=== PATIENT | male | born 1975 | race Caucasian/White ===

== ENCOUNTER 2018-12-13 15:29 | Emergency (ER) | payer OTHER ==
[2018-12-13 15:34] VITALS: BP 135/87; PULSE 93; RESP 18; TEMP 99
--- NOTE | 2018-12-13 16:23 | XR ---
EXAMINATION TYPE: XR knee complete RT DATE OF EXAM: 12/13/2018 COMPARISON: NONE HISTORY: 43-year-old male worsening right knee pain 3 weeks after injury TECHNIQUE: 3 views FINDINGS: There is some lucency and irregularity in the region of the lateral tibial plateau with a very subtle articular surface defect on the AP view. [id number] knee joint effusion. Generalized soft tis austin swelling. Mild degenerative spurring in the patellofemoral compartment. IMPRESSION: Suspect an occult lateral tibial plateau fracture. Small to moderate knee joint effusion.
--- NOTE | 2018-12-13 16:46 | ED ---
General Adult HPI - General Chief complaint: Extremity Injury, Lower Stated complaint: Knee pain Time Seen by Provider: 12/13/18 15:35 Source: patient Mode of arrival: ambulatory Limitations: no limitations - History of Present Illness Initial comments: Patient is a 43-year-old male presenting to the emergency department with a chief complaint of right knee pain. Patient reports he boxing about 3 to half weeks ago when he stomped the floor and felt a sudden onset of pain in the right knee. Patient reports initially he had swelling and ecchymosis along the posterior aspect of the right leg which has since resolved. Patient reports he continues to have limited range of motion with full extension and flexion. Patient reports very minimal pain that only appears to be exacerbated with weightbearing. Patient reports taking [id number] analgesics minimal improvement. - Related Data Previous Rx's Medication Instructions Recorded Erythromycin Ophth Oint [Romycin 1 applic LEFT EYE QID #1 tube 06/28/13 Ophth Oint] Ibuprofen [Motrin] 800 mg PO Q6HR PRN #15 tab 06/28/13 Allergies Allergy/AdvReac Type Severity Reaction Status Date / Time No Known Allergies Allergy Verified 12/13/18 15:30 Review of Systems ROS Statement: Those systems with pertinent positive or pertinent negative responses have been documented in the HPI. ROS Other: All systems not noted in ROS Statement are negative. Past Medical History Past Medical History: No Reported History History of Any Multi-Drug Resistant Organisms: None Reported Past Surgical History: No Surgical Hx Reported Past Psychological History: No Psychological Hx Reported Smoking Status: Current every day smoker Past Alcohol Use History: None Reported, Occasional Past Drug Use History: None Reported General Exam Limitations: no limitations General appearance: alert, in no apparent distress Head exam: Present: atraumatic, normocephalic, normal inspection Eye exam: Present: normal appearance Pupils: Present: normal accommodation ENT exam: Present: normal exam, mucous membranes moist, normal external ear exam Neck exam: Present: normal inspection, full ROM Respiratory exam: Present: normal lung sounds bilaterally Cardiovascular Exam: Present: regular rate, normal rhythm, normal heart sounds Extremities exam: Present: tenderness (Mild lateral knee tenderness.), normal capillary refill, other (+2 dorsalis pedis and posterior tibialis bilaterally.). Absent: normal inspection (Very mild ecchymosis in the right knee), full ROM (Limited range of motion with knee flexion past 90 and full extension.), calf tenderness (Negative Homans bilaterally.) Back exam: Present: normal inspection, full ROM Neurological exam: Present: alert, oriented X3 Psychiatric exam: Present: normal affect, normal mood Skin exam: Present: warm, intact, normal color Course Vital Signs 12/13/18 15:30 Temperature 99.0 F Pulse Rate 93 Respiratory 18 Rate Blood Pressure 135/87 O2 Sat by Pulse 95 Oximetry Medical Decision Making - Medical Decision Making patient is a 43-year-old male presenting to emergency Department with a chief complaint of right knee pain. This happened about 3 and half weeks ago when the patient stopped the floor and physical examination there only appears to minimize swelling and no other signs. Negative anterior drawer. X-rays ind icative of a cold lateral tibial plateau fracture with small amount of joint effusion. Immobilizer will be applied. Patient advised to alternate between Tylenol and ibuprofen for pain control. Patient does not want any narcotic medication. Patient advised to follow with orthopedics for further management. Patient also given crutches. Patient advised to avoid weightbearing on that leg. Strict return parameters were thoroughly discussed with patient was understanding and agreeable. Case discussed physician. Disposition Clinical Impression: Closed fracture of lateral portion of left tibial plateau Disposition: HOME SELF-CARE Condition: Stable Instructions (If sedation given, give patient instructions): Patellar Fracture (ED) Additional Instructions: Please follow up with orthopedics. Alternate between Tylenol and ibuprofen for pain control. Avoid weightbearing on the right leg. Is patient prescribed a controlled substance at d/c from ED?: No Referrals: Sonido West MD [Primary Care Provider] - 1-2 days Perry Rao MD [STAFF PHYSICIAN] - 1-2 days Time of Disposition: 16:46
== END 2018-12-13 17:16 | disposition home or self-care (01) ==
LOC: EC 15:29
DX: S82.141A Displaced bicondylar fracture of right tibia, initial encounter for closed fracture (principal); F17.200 Nicotine dependence, unspecified, uncomplicated; W18.39XA Other fall on same level, initial encounter; Y93.72 Activity, wrestling
CPT/HCPCS: 73562; 99283; L1830 ×2

== ENCOUNTER → 2018-12-19 | Outpatient (CLI) | payer OTHER ==
--- NOTE | 2018-12-20 07:56 | CT ---
EXAMINATION TYPE: CT knee RT wo con DATE OF EXAM: 12/19/2018 COMPARISON: Right knee x-rays dated 12/13/2018 HISTORY: right knee pain following injury CT DLP: 500.7 mGycm Automated exposure control for dose reduction was used. TECHNIQUE: Contiguous axial CT slices were obtained of the right knee with sagittal and coronal refor mats in bone algorithm and axial reformatted soft tissue algorithm. 3-D reformatted images of the rig ht knee were obtained in bone window adnexa. FINDINGS: There is a vertically oriented fracture of the lateral tibial plateau with horizontally oriented impa ction fracture component with depression of 5 mm. There is lucency also extending towards the lateral tibial eminence with an 8 mm loose fragment graded near the lateral tibial eminence. There is an ass ociated small lipohemarthrosis and some thickening of the anterior cruciate ligament. Fragmentation o f the tibial tuberosity near the patellar tendon insertion appears well-corticated and is likely from remote injury. There is mild sclerosis of the medial compartment joint space narrowing and very smal l osteophytes of the patellofemoral compartment. There are subtle calcifications along the medial col lateral ligament and some thickening of the medial collateral ligament. MRI could assess for ligament ous injury. There is fat stranding surrounding the medial head of the gastrocnemius and just anterior to the medial head of the gastrocnemius. Tendinous injury is possible. IMPRESSION: 1. CONFIRMATION OF THE SUSPECTED LATERAL TIBIAL PLATEAU FRACTURE, UNCOMPLICATED FRACTURE WITH PREDOMI NANTLY VERTICAL COMPONENT AND DEPRESSED HORIZONTAL COMPONENT (DEPRESSION OF 5 MM) WELL AN 8 MM COMMINUTED LOOSE FRAGMENT NEAR THE LATERAL TIBIAL EMINENCE. 2. CALCIFICATIONS ALONG THE MEDIAL COLLATERAL LIGAMENT AND THICKENING OF THE MEDIAL COLLATERAL LIGAME NT, SUSPECTED INJURY. MRI WOULD BE RECOMMENDED. THIS COULD ALSO EVALUATE THE FAT STRANDING SURROUNDIN G THE MEDIAL HEAD OF THE GASTROCNEMIUS AND EVALUATE FOR TENDINOUS INJURY. 3. ASSOCIATED SMALL SUPRAPATELLAR LIPOHEMARTHROSIS. 4. MILD BICOMPARTMENTAL ARTHROSIS.
== END | disposition home or self-care (01) ==
LOC: RADCTMAIN 16:55
PROVIDERS: ATTEND Orthopaedic Surgery
DX: S86.801A Unspecified injury of other muscle(s) and tendon(s) at lower leg level, right leg, initial encounter (principal); M23.8X1 Other internal derangements of right knee; M17.11 Unilateral primary osteoarthritis, right knee